=== PATIENT | male | born 1955 | race Caucasian/White ===

== ENCOUNTER → 2018-09-11 | Outpatient (CLI) | payer OTHER | LOC: M.RAD 11:36 | DX: M12.522 Traumatic arthropathy, left elbow (principal); M77.8 Other enthesopathies, not elsewhere classified; Z98.890 Other specified postprocedural states; W19.XXXA Unspecified fall, initial encounter ==

== ENCOUNTER → 2019-03-15 | Outpatient (CLI) | payer OTHER | LOC: M.ULTRA 03-12 09:00 | DX: K76.0 Fatty (change of) liver, not elsewhere classified (principal) ==

== ENCOUNTER → 2019-07-17 | Outpatient (CLI) | payer OTHER | LOC: M.RAD 11:21 | DX: R06.02 Shortness of breath (principal); R61 Generalized hyperhidrosis ==

== ENCOUNTER → 2019-08-07 | Outpatient (CLI) | payer OTHER | LOC: M.RAD 10:24 | DX: M79.642 Pain in left hand (principal); M19.90 Unspecified osteoarthritis, unspecified site ==